=== PATIENT | female | born 1965 | race Caucasian/White ===

== ENCOUNTER 2023-09-14 18:21 | Inpatient (IN) | payer OTHER, SELFPAY ==
[2023-09-14 13:29] VITALS: BP 167/96
[2023-09-14 13:48] LABS: % Basophils 0.4 % (0-2); % Immature Granulocytes 0.4 % (0-0.5); % Lymphocytes 32.2 % (20.5-51.1); % Monocytes 9.2 % (1.7-9.3); % Neutrophils 53.8 % (42.2-75.2); Absolute Eosinophils 0.3 10^3/uL (0-0.7); Absolute Lymphocytes 2.3 10^3/uL (1.2-3.4); Absolute Monocytes 0.7 10^3/uL (0.1-0.6); Absolute Neutrophils 3.9 10^3/uL (1.4-6.5); Hematocrit 39.3 % (37.0-47.0); Hemoglobin 12.8 g/dL (12.0-16.0); Mean Corp Hgb Conc. 32.6 g/dL (33.0-37.0); Mean Corpuscular Hgb 29.4 pg (27.0-31.0); Mean Corpuscular Volume 90.1 fL (81.0-99.0); Mean Platelet Volume 9.8 fL (7.4-10.4); Nucleated Red Blood Cells % 0 %; Platelet Count 307 10^3/uL (130-400); Red Blood Cell Count 4.36 10^6/uL (4.20-5.40); Red Cell Dist. Width 12.8 % (11.5-14.5); White Blood Cell Count 7.2 10^3/uL (4.8-10.8)
[2023-09-14 14:01] LABS: Lactic Acid 2.4 mmol/L (0.7-2.0)
[2023-09-14 14:04] LABS: ALT (SGPT) 50 U/L (0-35); AST (SGOT) 37 U/L (14-36); Albumin 4.5 g/dl (3.5-5.0); Alkaline Phosphatase 109 U/L (38-126); Blood Urea Nitrogen 22 mg/dl (7-17); Glucose 130 mg/dl (70-99); Sodium 138 mmol/L (135-145); Total Bilirubin 0.4 mg/dl (0.2-1.3); Total Protein 7.6 g/dl (6.3-8.2); eGFR > 60.00
[2023-09-14 14:24] LABS: Carbon Dioxide 21 mmol/L (22-30); Chloride 106 mmol/L (98-107); Potassium 4.4 mmol/L (3.5-5.1)
--- NOTE | 2023-09-14 16:07 | ED.GENMED ---
History of Present Illness
General
Chief Complaint: Skin Problem
Time Seen by Provider: 09/14/23 16:03
Travel History
Have you had any contact with someone who has COVID-19?: No
Do you have any symptoms of coronavirus? Fever > 100 degrees, chills, cough, shortness of breath, sore throat, loss of taste or smell, muscle aches, or headache?: No
History of Present Illness
History of Present Illness:
HPI: The patient presents due to increased concerns for appearance of the left first toe. This is a chronic issue that was actually improved a while ago and then over the last few weeks started to worsen. She had a Tmax of 102.5. She was placed
on doxycycline and clindamycin by PMD. Her symptoms continue to worsen. And sensation which is chronic for her related to diabetic neuropathy
EXAM:
GENERAL: Well appearing in no distress
HEENT: Moist oral mucosa
CARDIOVASCULAR: No murmurs, borderline tachycardic heart rate, regular rhythm, No chest wall tenderness
PULMONARY: No respiratory distress, breath sounds are clear and equal
ABDOMEN: Soft with no peritoneal signs, no tenderness
NEUROLOGIC: Excellent strength all extremities, no coordination deficits, absent sensation to lower extremities distally
PSYCHIATRIC: Appropriate mental status, normal insight and judgement
EXTREMITIES: There is a 1 cm ulcerative defect with some mild warmth and erythema to the medial aspect of the left first toe
SKIN: No rash, no lesions, good perfusion
TIME OF INITIAL ENCOUNTER: 4:15 PM
NUMBER AND COMPLEXITY OF PROBLEMS ADDRESSED AT THE ENCOUNTER
� Chronic conditions affecting care: Diabetes, diabetic neuropathy, sleep apnea, history of atrial flutter, GERD
� Acute Exacerbation and/or Progression of Chronic Illness: This is an acute/subacute problem
� Differential Diagnosis includes: Diabetic foot infection, cellulitis, bacteremia
AMOUNT AND/OR COMPLEXITY OF DATA TO BE REVIEWED AND ANALYZED
� I performed an independent evaluation of and my interpretation is:
EKG:
CT:
X-rays: No definite evidence of osteomyelitis, some soft tissue defect noted on the imaging
Laboratory Studies: White count 7.2, hemoglobin normal, chemistries relatively unremarkable. Lactic is slightly elevated 2.4
Other:
� Review of other/old records: I reviewed old records, the patient was admitted here in 2021 with bilateral lower extremity cellulitis and was febrile at that time
� Clinical information was obtained by an independent historian: I spoke to the at bedside
� Prescriptions/Medications Considered but not given:
� Further testing considered but not performed:
RISK OF COMPLICATIONS AND/OR MORBIDITY OR MORTALITY OF PATIENT MANAGEMENT
� Social determinants of health affecting care: Lives at home
� Discussion with other providers: Hospitalist for admission at 4:20 PM
� Escalation of care including admission/observation vs risk of discharge considered: The patient has evidence of diabetic foot infection. She has absent sensation chronically related to diabetic neuropathy. She is already on
oral antibiotics�she is failing outpatient management�will plan admission to the hospital for IV antibiotics. I have also ordered Vanco and Zosyn.
Past History
Past History
ED Past Medical History: HTN, Hypercholesterolemia, NIDDM, Psychiatric and Other (Chronic low back pain, lumbar DJD, cellulitis, obesity)
ED Past Surgical History: Cholecystectomy and Orthopedic (Left knee arthroscopy)
Social History
Tobacco: Non-smoker
Alcohol: Occasional (Rare)
Personal:
Living: with family
Employment: Not employed
Family History
Family History: Diabetes
Phy Exam
Physical Exam
Physical Exam:
See HPI
Course
Orders/Labs/Results
Orders:
Orders
09/14/23 13:40
Lactic Acid Q4H
Comment: ON ICE, CANCEL 2ND ORDER IF FIRST LACTIC ACID LEVEL <2
09/14/23 13:41
C-Reactive Protein Urgent
Comment: ADD ON
Complete Blood Count/With Diff Urgent
Comprehensive Metabolic Panel Urgent
Erythrocyte Sed Rate Urgent
Blood Culture Q30M
JACEK Source: Blood/Venous
Specimen Description:
Comment: FROM 2 SEPARATE SITES
09/14/23 Dinner
2000 calorie (17 carb) Diabetic
At Your Request: Full Participation
09/14/23 16:16
Wound Culture [Wound/Abscess/Other Culture] Urgent
JACEK Source: Foot
Specimen Description: Left
Date Specimen was Collected: 09/14/23
Time Specimen was Collected: 17:23
09/14/23 16:17
Piperacillin/Tazo 3.375 Gram [Zosyn] 3.375 gram in 50 ml IV NOW
09/14/23 16:19
CR Foot - Left Min 3 Views Urgent
Comment:
Reason For Exam: eval for osteomyelitis
09/14/23 16:52
Lactic Acid Q4H
Comment: ON ICE, CANCEL 2ND ORDER IF FIRST LACTIC ACID LEVEL <2
Blood Culture Q30M
JACEK Source: Blood/Venous
Specimen Description:
Comment: FROM 2 SEPARATE SITES
09/14/23 17:18
Vancomycin [Vancocin] 2,000 mg 0.9% Sodium Chloride 500 ml [Nss] 500 ml IV NOW
09/14/23 17:34
Admit/Transfer Patient As Directed
Co-Sign Provider:
Level of Care: Inpatient admission
Assign to:: Medical/Surgical
Physician / Group: Carlos Alberto
Diagnosis: Left Diabetic Toe Ulcer
Reason for Hospitalization: Left Diabetic Toe Ulcer
Expected length of stay greater than two midnights?: Yes
ELOS- Estimated Length of Stay in days: 2
I certify the patient meets the requirements for IP care: Yes
09/14/23 17:36
Code Status As Directed
Resuscitation Status: Full Code
09/14/23 17:49
EKG [Electrocardiogram (*1)] Urgent
Reason for Study: Syncope
09/14/23 18:00
VANCOMYCIN Pharmacy to Dose [VANCOCIN Pharmacy to Dose] 1 each Pharmacy To Prepare [Call Pharmacy To Prepare] 0 ml IV PER PROTOCOL
09/14/23 21:14
0.9% Sodium Chloride 1000 ml [Nss] 1,000 ml IV 100 mls/hr
Acetaminophen [Tylenol] 650 mg PO Q4HPRN PRN
Bisacodyl [Dulcolax] 10 mg RECTAL [id number] PRN
Docusate W/Senna [Senokot-S] 1 tablet PO BIDPRN PRN
Enoxaparin Sodium [Lovenox] 40 mg SC QPM
Ketorolac [Toradol] 15 mg IV Q6HPRN PRN
Ondansetron Injectable [Zofran] 4 mg IV Q6HPRN PRN
Polyethylene Glycol Powder [Miralax] 17 grams PO DAILYPRN PRN
09/14/23 21:14
PODIATRY CONSULT Routine
Consulting Provider: Kenna Vieira
Was physician already notified: Yes
Reason for consult: left diabetic toe ulcer
Activity As Directed
Activity Level: Ambulate
Vital Signs As Directed
Frequency: Per unit guidelines
DX Deep Vein Thrombosis Video Routine
09/14/23 22:00
Aspirin Chewable [Low Strength Aspirin] 81 mg PO HS
Loratadine [Claritin] 10 mg PO HS
Piperacillin/Tazo 3.375 Gram [Zosyn] 3.375 gram in 50 ml IV Q6H
09/15/23 06:00
Basic Metabolic Panel IN AM
Complete Blood Count/With Diff IN AM
LFT [Edued-Puis-Dvvmfda] IN AM
09/15/23 08:00
Cholecalciferol (Vitamin D3) [VITAMIN D3 (cholecalciferol)] 25 mcg PO DAILY
Lisinopril [Zestril] 20 mg PO DAILY
Metformin Extended Release [Glucophage Xr Extended Release] 1,500 mg PO DAILY
09/16/23 08:00
dulaglutide [Trulicity] See Dose Instructions SC DASILVA
Abnormal Lab Results
09/14/23 09/14/23 09/14/23
13:40 13:41 16:52
MCHC 32.6 L g/dL
(33.0-37.0)
Absolute Monos (auto) 0.7 H 10^3/uL
(0.1-0.6)
ESR 53 H mm/hour
(0-20)
Carbon Dioxide 21 L mmol/L
(22-30)
BUN 22 H mg/dl
(7-17)
Glucose 130 H mg/dl
(70-99)
Lactic Acid 2.4 H mmol/L 2.5 H mmol/L
(0.7-2.0) (0.7-2.0)
AST 37 H U/L
(14-36)
ALT 50 H U/L
(0-35)
C-Reactive Protein 37.50 H mg/L
(0.0-10.00)
09/14/23 13:41
09/14/23 13:41
Vital Signs
Initial and Last Documented VS:
Initial Vital Signs
Temp Pulse Resp BP Pulse Ox
99.1 F 100 18 167/96 97
09/14/23 13:29 09/14/23 13:29 09/14/23 13:29 09/14/23 13:29 09/14/23 13:29
Last Documented Vital Signs
Temp Pulse Resp BP Pulse Ox
97.8 F 96 20 129/80 94
09/14/23 21:22 09/14/23 21:22 09/14/23 21:22 09/14/23 21:22 09/14/23 21:22
*Critical Care Note
Total Time (30-74mins, 75-104mins- exclusive of procedures): Not Applicable
ED Attending Note
-
Portions of this chart may have been created with voice recognition software.� Occasional wrong word or��sound alike� substitutions may have occurred due to the inherent limitations of voice recognition software.
Discharge Plan
Departure
Patient Disposition: Admit
Date of Disposition: 09/14/23
Time of Disposition: 16:21
Presentation/result/management discussed w/ accepting MD/DO: Hospitalist
Discharge Problem:
Diabetic foot infection
Interventions
Interventions:
*Risk Screen - Suicide Last Done: 09/14/23 13:29
*General Assessment Last Done: 09/14/23 13:29
*Neglect/Abuse Screening Last Done: 09/14/23 13:29
ED- Fall Risk Assessment Last Done: 09/14/23 17:07
*ED COVID-19 Vaccine History Last Done: 09/14/23 17:17
*Nursing Disposition Last Done: 09/14/23 20:44
ED-Skin Assessment Last Done: 09/14/23 17:17
Discharge Date and Time
Discharge Date/Time: 09/14/23 20:44
[2023-09-14 16:52] VITALS: BMI 48.5
[2023-09-14] MEDS: ZOSYN 50 IV ×2 (16:59→22:21)
--- NOTE | 2023-09-14 17:10 | HPS.HSE ---
Addendum entered and electronically signed by Emir Carcamo DO 09/14/23 17:59:
Addendum to Plan:
Transaminitis
- Likely in setting of hypoperfusion injury, Mild
- Hold home statin. Continue IVF
- Repeat LFTs in AM
Original Note:
Family Physician
-
Family Physician: Boom Grijalva
Chief Complaint
-
Worsening Left 1st Toe Infection failing antibiotics
History of Present Illness
57yo F with PMH Chronic Left Diabetic Foot Wound, DM2/Neuropathy, HTN/HLD, Lymphedema, Hx Right Breast Ca s/p Surgery/Radiation, Hx Uterine Ca s/p KAVON (2018) presents to ER with complaint of worsening left 1st toe infection. Pt states that she has
had a left medial toe wound for years and it was starting to heal up until 2 weeks ago. She had an unrelated sinus infection and was treated with amoxicillin with improvement in symptoms. On Sunday however she noticed a Fever of 102.5 and her wound
starting to feel more spongy with bloody drainage. Denies pain as her sensation is chronically limited. Saw her PCP who started her on cipro/doxy on Sunday but did not feel improvement prompting ER evaluation. Pt reports episdoe of dizziness, near
syncope, HR racing while in the shower. Denies current fever, chest pain, palps, wheezing, cough, sob, abd pain, n/v/d/c, dysuria, calf or leg pain.
Pt was previously follow[facility] Dr. Kenna Vieira but was lost to follow up after she was diagnosed with breast cancer and underwent surgery/radiation.
ER course: Pt presents with HR 100, other V.S.S. WBC 7.2K, BUN/Cr 22/0.8, CO2 21, BG 130, AST/ALT 37/50. ESR/CRP ordered. XR Left Foot ordered and pending. BCx2 ordered. Wound culture ordered in ER but no significant drainage to obtain sample. S/P
vanco/zosyn in ER.
Medical History
Past Medical History
Past Medical History: Reports Other (DM2/Neuropathy, HTN/HLD, Lymphedema, Right Breast Cancer, Uterine Ca (2018))
Past Surgical History: Reports Other (Cholecystectomy, Left Knee Arthroscopy, KAVON (2018), Left Lumpectomy)
Social History
Tobacco: Non-smoker
Alcohol: Occasional
Drug: None
Personal:
Living: With Family
Family History
Family History: Diabetes
Allergies / Home Medications
Allergies reflects when Allergies were last updated in [employer].
Home Medications with original date entered in [employer]
Allergy/Medication List:
Allergies
Allergy/AdvReac Type Severity Reaction Status Date / Time
environmental allergies Allergy Itching Uncoded 09/14/23 13:29
Home Medications
coenzyme Q10 100 mg capsule (Q-Sorb Co Q-10) 100 mg PO HS Supplement 10/16/16
loratadine 10 mg tablet 10 mg PO HS Allergies 10/16/16
triamterene 37.5 mg-hydrochlorothiazide 25 mg tablet 1 ea PO DAILY ##0 10/20/16
aspirin 81 mg chewable tablet 81 mg PO HS Blood clot prevention/tx 06/22/21
cholecalciferol (vitamin D3) 25 mcg (1,000 unit) tablet 1,000 units PO DAILY Supplement 06/22/21
lisinopril 20 mg tablet 20 mg PO DAILY Blood pressure 06/22/21
pravastatin 40 mg tablet 40 mg PO HS High cholesterol 06/22/21
Hyaluronic Acid 1 tab PO HS 09/14/23
alpha lipoic acid 600 mg tablet 600 mg PO DAILY 09/14/23
clindamycin HCl 300 mg capsule 300 mg PO QID 09/14/23
doxycycline hyclate 100 mg tablet 100 mg PO BID 09/14/23
dulaglutide 0.75 mg/0.5 mL subcutaneous pen injector (Trulicity) 0.75 mg SC DASILVA 09/14/23
magnesium glycinate 1 tab PO HS 09/14/23
metformin 750 mg tablet,extended release 24 hr 1,500 mg PO DAILY 09/14/23
Review of Systems
-
A 12 point ROS was completed and negative except as noted: Yes
Physical Exam
Vital Signs
Vital Signs
Temp Pulse Resp BP Pulse Ox
99.1 F 100 18 167/96 97
09/14/23 13:29 09/14/23 13:29 09/14/23 13:29 09/14/23 13:29 09/14/23 13:29
Physical Exam
General: Well Developed, Well Nourished and No Apparent Distress
HEENT: NormoCephalic, Moist mucous membranes and Atraumatic
Respiratory: Clear
Cardiac: S1/S2 and Tachycardia; No Murmur or Rub
GI: Soft, Non Tender, Non Distended, Normal Bowel Sounds and Other (+obese.); No Organomegaly
Rectal: Deferred by Provider
Genito-urinary: No costovertebral tender; No Friedman
Musculoskeletal: No Clubbing, No Cyanosis and No Edema
Skin: Lesions and Other (1 cm ulcerative defect with some mild warmth and erythema to the medial aspect of the left first toe )
Neuro: Awake, Alert, AO x 3, No Motor Deficits and No Sensory Deficits (Chronically diminished sensation of b/l LE)
Hematologic/Lymphatic: No Lymphadenopathy
Psych: Calm
Laboratory Results
-
09/14/23 13:41
09/14/23 13:41
Laboratory Results
Lactic Acid 2.4 mmol/L (0.7-2.0) H 09/14/23 13:40
Total Bilirubin 0.4 mg/dl (0.2-1.3) 09/14/23 13:41
AST 37 U/L (14-36) H 09/14/23 13:41
ALT 50 U/L (0-35) H 09/14/23 13:41
Alkaline Phosphatase 109 U/L (38-126) 09/14/23 13:41
Data Reviewed
-
Diagnostic Radiology: Image Personally Visualized and interpreted
Medical Tests (Nuc Med, Echo, EKG etc): Image Personally Visualized and interpreted
Lab Data: Labs Reviewed by me
Old Records: Reviewed
Impression/Plan
-
Diabetic Toe Ulcer / Failure of Outpatient antibiotics
- Failure of outpatient clindamycin/doxycycline
- Presents mildly tachy, afebrile, no leukocytosis. Sepsis not POA
- XR: Left great toe soft tissue wound as described above. No evidence of osteomyelitis. Minimal first MTP joint osteoarthritis. Progressed
- Blood cultures x2 ordered. No drainage obtain for wound culture in ER
- Continue vanco/zosyn started in ER, follow trough
- Consult Podiatry for evaluation (Pt previously following with Dr. Vieira).
- Will maintain diet
Elevated Lactic Acid
- LA 2.4. Mild metabolic acidosis noted on labs, CO2 19. Likely early sepsis
- Will hold home diuretic and continue NS @ 100cc/hr. Trend labs for AM
Hx DM2
- BG 130. A1C 8.2% 06/2021, appears reasonable controlled
- Continue home metformin. resume Trulicity on discharge (sundays)
- SSI/accuchecks. Diabetic Diet.
Neuropathy
- Not on any medications
- Chronically diminished b/l LE sensation
HTN/HLD
- BP stable on admission. Continue home lisinopril. Will hold home diuritic in place of IVF for now, Reassess restarting tomorrow.
- Continue home statin
Hx Breast Cancer (left) - s/p lumpectomy/radiatoin
Hx Uterine Ca - S/P KAVON (2018)
Diet: Diabetic Diet
DVT Ppx: Lovenox
Code Status: Full
[2023-09-14 17:17] LABS: Lactic Acid 2.5 mmol/L (0.7-2.0)
[2023-09-14 17:29] VITALS: BP 155/87
[2023-09-14 17:58] LABS: Erythrocyte Sed Rate 53 mm/hour (0-20)
[2023-09-14] MEDS: VANCOCIN 540 MG IV (18:13)
--- NOTE | 2023-09-14 21:00 | PTCARENOTE ---
Pt transferred from ED. Pt [id number], able to make needs known, VSS. Pt oriented to unit, call rojo within reach, will continue with current plan.
[2023-09-14 21:22] VITALS: BP 129/80; BMI 51.1
[2023-09-14 21:50] VITALS: BMI 51.1
--- NOTE | 2023-09-14 21:51 | PHA.VAN.IN ---
Assessment
- Assessment
Renal Function: Appears similar to baseline (06/23/21 BASELINE SCR: 0.8)
Concomitant Antimicrobials: ZOSYN
- Previous Dosing Experience
Previous Regimen: 1GM IV Q12
Date of Regimen: 06/23/21
Provided Trough of: 10.2 PREDICTED
Provided AUC of: 414 PREDICTED
Patient's SCR is: Similar to previous dosing experience (06/23/21 SCR = 0.8)
Patient's weight is: Decreased compared to previous dosing experience (06/23/21 WT = 144.3 KG)
AUC Dosing Plan
- Dosing Variables
Dosing Weight (kg): 139.4
Dosing CrCl (ml/min): 100
Vd coefficient (L/kg): 0.4
- Empiric Dosing
Initial / Loading Dose: 2GM
Maintenance Regimen: 1250MG IV Q12H
Estimated AUC (mcg*h/mL): 547
Estimated Peak (mcg*h/mL): 34.5
Estimated Trough (mcg/ml): 13.8
Estimated Half Life (H): 7.9
Pharmacokinetics Vancomycin I
- -
Patient Age: 57
Patient Sex: Female
Vancomycin Day #: 1
Indication: Bone And Joint
Requesting Provider: BELÉN
Height / Weight:
Height 5 ft 5 in
Actual Weight 139.423 kg
Pertinent Past Medical History: DM; FAILED OUTPT TX DOXY/CLINDA
- Vital Signs / Lab Results
Temp Pulse Resp BP Pulse Ox
97.8 F 96 20 129/80 94
09/14/23 21:22 09/14/23 21:22 09/14/23 21:22 09/14/23 21:22 09/14/23 21:22
Lab Results - Hematology
09/14/23
13:41
WBC 7.2
Lab Results - Chemistry
09/14/23
13:41
BUN 22 H
Creatinine 0.8
Albumin 4.5
09/14/23 09/14/23
13:40 16:52
Lactic Acid 2.4 H 2.5 H
[2023-09-14 22:04] LABS: Glucose - Point of Care 140 mg/dl (70-99)
[2023-09-14] MEDS: NSS 1000 IV (22:21)
[2023-09-14] MEDS: CLARITIN 10 MG PO (22:22)
[2023-09-14] MEDS: LOW STRENGTH ASPIRIN 81 MG PO (22:22)
[2023-09-14 23:29] VITALS: BP 153/87
[2023-09-14 23:36] VITALS: PULSE 108
[2023-09-15] MEDS: ZOSYN 50 IV ×2 (03:41→10:56)
[2023-09-15] MEDS: VANCOCIN 275 MG IV (05:28)
[2023-09-15 07:59] VITALS: BP 136/86
[2023-09-15 08:02] LABS: Glucose - Point of Care 156 mg/dl (70-99)
[2023-09-15] MEDS: GLUCOPHAGE XR EXTENDED RELEASE 1500 MG PO (08:20)
[2023-09-15] MEDS: VITAMIN D3 (cholecalciferol) 25 MCG PO (08:20)
[2023-09-15] MEDS: LOVENOX 60 MG SC (08:20)
[2023-09-15] MEDS: ZESTRIL 20 MG PO (08:20)
[2023-09-15 08:30] LABS: % Basophils 0.5 % (0-2); % Eosinophils 4.5 % (0-6); % Immature Granulocytes 0.7 % (0-0.5); % Lymphocytes 30.1 % (20.5-51.1); % Monocytes 10.3 % (1.7-9.3); % Neutrophils 53.9 % (42.2-75.2); Absolute Eosinophils 0.3 10^3/uL (0-0.7); Absolute Lymphocytes 1.8 10^3/uL (1.2-3.4); Absolute Monocytes 0.6 10^3/uL (0.1-0.6); Absolute Neutrophils 3.3 10^3/uL (1.4-6.5); Hematocrit 33.1 % (37.0-47.0); Hemoglobin 11.4 g/dL (12.0-16.0); Mean Corp Hgb Conc. 34.4 g/dL (33.0-37.0); Mean Corpuscular Hgb 30.1 pg (27.0-31.0); Mean Corpuscular Volume 87.3 fL (81.0-99.0); Mean Platelet Volume 9.8 fL (7.4-10.4); Nucleated Red Blood Cells % 0 %; Platelet Count 290 10^3/uL (130-400); Red Blood Cell Count 3.79 10^6/uL (4.20-5.40); Red Cell Dist. Width 12.9 % (11.5-14.5)
[2023-09-15 08:57] LABS: ALT (SGPT) 44 U/L (0-35); AST (SGOT) 30 U/L (14-36); Albumin 3.7 g/dl (3.5-5.0); Alkaline Phosphatase 84 U/L (38-126); Blood Urea Nitrogen 20 mg/dl (7-17); Calcium 9.3 mg/dl (8.4-10.2); Carbon Dioxide 23 mmol/L (22-30); Chloride 108 mmol/L (98-107); Direct Bilirubin 0.3 mg/dl (0.0-0.4); Estimated Creatinine Clearance 97 ml/min; Glucose 159 mg/dl (70-99); Potassium 4.6 mmol/L (3.5-5.1); Sodium 137 mmol/L (135-145); Total Bilirubin 0.3 mg/dl (0.2-1.3); Total Protein 6.5 g/dl (6.3-8.2); eGFR > 60.00
--- NOTE | 2023-09-15 10:43 | W.PN.HOSP.TC ---
Addendum entered and electronically signed by Ran Abdi MD 09/15/23 12:02:
d/w Dr. Smith, dc home on PO Keflex x 10 days
she discussed the following with patient/family:
Discussed daily wound care
Patient must purchase diabetic shoes with supports to relieve excessive pressure at the medial hallux.
Will follow up in my office next week
Original Note:
Today's Communication/Plan
-
Abx
follow cultures
ID and Podiatry evals
Assessment / Plan
Assessment / Plan
Assessment:
Diabetic Toe Ulcer/Failure of Outpatient antibiotics
Elevated lactic acidosis
- no clear evidence of sepsis on arrival (normal WBC, no fevers)
- continue IVF and trend lactates
- Failure of outpatient clindamycin/doxycycline
- XR: Left great toe soft tissue wound as described above. No evidence of osteomyelitis. Minimal first MTP joint osteoarthritis. Progressed
- Continue vanco/zosyn started; ID consulted, follow cultures
- Consult Podiatry for evaluation (Pt previously following with Dr. Vieira).
Type 2 DM
- continue Metformin
- hold Trulicity
- check A1c
- SSI
- diabetic diet
Neuropathy from DM
- Not on any medications
- Chronically diminished b/l LE sensation
Essential HTN
HLD
- BP stable on admission. Continue home lisinopril. Will hold home diuretic in place of IVF for now
- Continue home statin
Hx Breast Cancer (left) - s/p lumpectomy/radiation
Hx Uterine Ca - S/P KAVON (2018)
DVT ppx: Lovenox
Code Status: Full
Anticipated Discharge: > 48 hours
Subjective/Interval History
-
Date of Service: September 15, 2023
feels no pain but reports history of neuropathy
denies fever/chills
Objective Data
-
Labs:
Laboratory Results
09/15/23
07:50
WBC 6.0
Hgb 11.4 L
Hct 33.1 L
Plt Count 290
Sodium 137
Potassium 4.6
Chloride 108 H
Carbon Dioxide 23
BUN 20 H
Creatinine 0.9
Glucose 159 H
Calcium 9.3
Total Bilirubin 0.3
AST 30
ALT 44 H
Alkaline Phosphatase 84
Vital Signs:
Vital Signs
Temp Pulse Resp BP Pulse Ox
97.3 F 81 16 136/86 99
09/15/23 07:59 09/15/23 07:59 09/15/23 07:59 09/15/23 07:59 09/15/23 07:59
I&O
09/14/23 09/15/23 09/16/23
06:59 06:59 06:59
Intake Total 1075 / 1075
Balance 1075 / 1075
Physical Exam
-
General: No Apparent Distress and Morbidly Obese
HEENT: Normocephalic and Atraumatic
Respiratory: Negative Wheezes or Rales
Cardiac: Regular Rhythm and S1/S2
GI: Soft and Nontender
Skin: Other (Left 1st great toe wound lateral wound, no significant drainage, mild surrounding cellulitis dorsal great toe)
Neuro: AO x 3
Hematologic / Lymphatic: No Lymphadenopathy
Psych: Calm
Data Reviewed
-
Total Time Spent with Patient (in minutes): 45
Labs: Labs Reviewed by me
--- NOTE | 2023-09-15 11:29 | CM ---
food service manager reviewed patient's chart and met with patient and patient lives with her spouse in a 2 story home with 2 steps to enter, patient is independent with adl's and ambulation, roxana drives, patient has a prescription plan and patient uses
[facility] pharmacy.
PCP: Dr. Grijalva
Plan; Home when stable, no needs.
--- NOTE | 2023-09-15 11:39 | CON.MD ---
Consultation - Medical
-
57 year old female admitted with left great toe wound and cellulitis. Know to our service but has not been seen for over a year. Chronic recurrent callouses had resolved but according to the patient over the last one week, the skin on the plantar
medial toe changed color with 'dark spots'. Failed oral antibiotic therapy prescribed by her PCP. Patient states she has had several bouts of cellulitis over the last year, all resolved with oral antibiotic therapy.
Patient denies fever, chills. States tight glucose control (HgbA1c pending), no leukocytosis. Radiographs do not show osseous changes to indicate presence of osteomyelitis.
Pedal pulses palpable with generalized bilateral edema, 1.5 cm wound plantar medial hallux with no drainage and does not probe to bone. Darkening of the wound base and dried blood may be result of blood blister or verucca. Similar lesion present
right hallux with no open ulcer. Left with ascending cellulitis to the MTPJ dorsal only and receding. Patient has no discomfort due to profound neuropathy
Impression/Plan
-Left hallux ulcer/cellulitis
Discharge on Cephalexin 10 days
Discussed daily wound care
Patient must purchase diabetic shoes with supports to relieve excessive pressure at the medial hallux.
Will follow up in my office next week
-DM with peripheral neuropathy
-Hx of breast and uterine CA
[2023-09-15 11:46] LABS: Glucose - Point of Care 166 mg/dl (70-99)
--- NOTE | 2023-09-15 12:06 | W.DS.TRANS ---
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
-
Discharge Instructions:
Discharge Diagnosis/Procedures Left first toe wound with mild cellulitis
surrounding it
Diet Diabetic, Carb Controlled
Activity As tolerated
Bathing Restrictions None
Instructions:
Stand-Alone Forms:
Changes to Home Medications: No
Discharge Medications:
DC Medications w/original date entered in [employer]
coenzyme Q10 100 mg capsule (Q-Sorb Co Q-10) 100 mg PO HS Supplement 10/16/16
loratadine 10 mg tablet 10 mg PO HS Allergies 10/16/16
triamterene 37.5 mg-hydrochlorothiazide 25 mg tablet 1 ea PO DAILY ##0 10/20/16
aspirin 81 mg chewable tablet 81 mg PO HS Blood clot prevention/tx 06/22/21
cholecalciferol (vitamin D3) 25 mcg (1,000 unit) tablet 1,000 units PO DAILY Supplement 06/22/21
lisinopril 20 mg tablet 20 mg PO DAILY Blood pressure 06/22/21
pravastatin 40 mg tablet 40 mg PO HS High cholesterol 06/22/21
Hyaluronic Acid 1 tab PO HS supppl 09/14/23
alpha lipoic acid 600 mg tablet 600 mg PO DAILY Supplement 09/14/23
dulaglutide 0.75 mg/0.5 mL subcutaneous pen injector (Trulicity) 0.75 mg SC DASILVA Diabetes 09/14/23
magnesium glycinate 1 tab PO HS Supplement 09/14/23
metformin 750 mg tablet,extended release 24 hr 1,500 mg PO DAILY Diabetes 09/14/23
cephalexin 500 mg capsule 500 mg PO QID #40 caps 09/15/23
Home Medication Changes
Pending Results: No
Total time spent discharging patient (in min): 42
== END 2023-09-15 14:33 | disposition home or self-care (01) | DRG 638 ==
LOC: 4 WEST ACU 18:21
PROVIDERS: Emergency Medicine; ADMITTING PHYSICIAN Internal Medicine; ATTENDING PHYSICIAN Internal Medicine; CONSULT PHYSICIAN Podiatrist Foot & Ankle Surgery; EMERGENCY PHYSICIAN Emergency Medicine; FAMILY PHYSICIAN Internal Medicine
PROC: 5A09357 Assistance with Respiratory Ventilation, Less than 24 Consecutive Hours, Continuous Positive Airway Pressure (ICD-10-PCS; 2023-09-14)
DX: E11.621 Type 2 diabetes mellitus with foot ulcer (principal); E87.20 Acidosis, unspecified; Z68.43 Body mass index [BMI] 50.0-59.9, adult; L03.032 Cellulitis of left toe; E11.42 Type 2 diabetes mellitus with diabetic polyneuropathy; L97.529 Non-pressure chronic ulcer of other part of left foot with unspecified severity; E78.00 Pure hypercholesterolemia, unspecified; I10 Essential (primary) hypertension; G89.29 Other chronic pain; M47.816 Spondylosis without myelopathy or radiculopathy, lumbar region; I89.0 Lymphedema, not elsewhere classified; E66.9 Obesity, unspecified; R74.01 Elevation of levels of liver transaminase levels; Z85.42 Personal history of malignant neoplasm of other parts of uterus; Z85.3 Personal history of malignant neoplasm of breast; Z92.3 Personal history of irradiation; Z79.82 Long term (current) use of aspirin; Z79.84 Long term (current) use of oral hypoglycemic drugs; Z79.85 Long-term (current) use of injectable non-insulin antidiabetic drugs; Z90.710 Acquired absence of both cervix and uterus
CPT/HCPCS: 73630; 80053; 82248; 82962; 83605; 85025; 85652; 86140; 87040; 87070; 93005; 94660; 96365; 96366; 96367; 99284